=== PATIENT | male | born 2000 | race Caucasian/White ===

== ENCOUNTER 2021-11-17 11:30 | Emergency (ER) | payer OTHER ==
[~2021-11-17 11:30] MED LIST: ATARAX25 MG PO; IBUPROFEN800 MG PO; PRINIVIL10 MG PO; ROBITUSSIN W/COD5 ML PO; VIBRAMYCIN100 MG PO
== END 2021-11-17 14:40 | disposition home or self-care (01) ==
LOC: FER 11:30
DX: S93.402A Sprain of unspecified ligament of left ankle, initial encounter (principal); I10 Essential (primary) hypertension; Z88.8 Allergy status to other drugs, medicaments and biological substances; Z79.899 Other long term (current) drug therapy; W19.XXXA Unspecified fall, initial encounter; X50.1XXA Overexertion from prolonged static or awkward postures, initial encounter; Y92.009 Unspecified place in unspecified non-institutional (private) residence as the place of occurrence of the external cause
CPT/HCPCS: 73610; 73630